=== PATIENT | female | born 1955 | race Caucasian/White ===

== ENCOUNTER 2022-05-22 12:38 | Emergency (ER) | payer MEDICARE, MEDICAID ==
[~2022-05-22] VITALS: Ht 167.6 cm; Wt 100.0 kg
[2022-05-22 12:43] VITALS: BP 179/149
[2022-05-22] MEDS ORDERED: indomethacin 25mg capsule PO ONE (13:40)
[2022-05-22] MEDS ORDERED: acetaminophen 325mg tablet PO ONE (13:40)
[2022-05-22] MEDS ORDERED: MELO-100 PO (13:44)
[2022-05-22] MEDS ORDERED: ACET-1025 PO (13:44)
== END 2022-05-22 14:08 | disposition home or self-care (01) ==
LOC: ER 12:38
DX: M79.10 Myalgia, unspecified site (principal)
CPT/HCPCS: 99283

== ENCOUNTER 2022-06-06 09:52 | Emergency (ER) | payer MEDICARE, MEDICAID ==
[~2022-06-06] VITALS: Ht 170.2 cm; Wt 100.0 kg
[~2022-06-06 09:52] MED LIST: MELO-100 PO
[2022-06-06 09:57] VITALS: BP 179/75
[2022-06-06] MEDS: HYDROcodone/acetaminophen 10/325mg tab PO ONE (12:37)
[2022-06-06] MEDS: ketorolac trometh inj. 60 MG/2 ML VIAL IM ONE (12:37)
[2022-06-06] MEDS ORDERED: NAPR-56 PO (14:06)
== END 2022-06-06 09:55 | disposition home or self-care (01) ==
LOC: ER 09:53
DX: M25.542 Pain in joints of left hand (principal); M25.541 Pain in joints of right hand; M54.9 Dorsalgia, unspecified; G89.29 Other chronic pain; F32.A Depression, unspecified; F17.200 Nicotine dependence, unspecified, uncomplicated; Z60.2 Problems related to living alone; Z79.899 Other long term (current) drug therapy
CPT/HCPCS: 73120; 96372; 99284; J1885

== ENCOUNTER 2024-06-11 10:07 | Emergency (ER) | payer BC, MEDICAID ==
[~2024-06-11] VITALS: Ht 167.6 cm; Wt 62.6 kg
[2024-06-11 10:33] LABS: BILIRUBIN,URINE SMALL (Neg); CLARITY,URINE CLOUDY (Clear); COLOR,URINE YELLOW (Yellow); GLUCOSE, URINE NEGATIVE (Neg); KETONES,URINE NEGATIVE (Neg); LEUKOCYTE ESTERASE ,URINE TRACE (Neg); NITRITES, URINE POSITIVE (Neg); OCCULT BLOOD,URINE NEGATIVE (Neg); PROTEIN,URINE TRACE mg/dl (Neg); UROBILINOGEN,URINE 0.2 E.U/dL (0.2-1.0)
[2024-06-11 10:37] LABS: UA COLLECTION TYPE CLN CATCH MIDSTREAM
[2024-06-11 10:39] LABS: BACTERIA,URINE 4+ /HPF (Neg); MUCUS STRANDS FEW /LPF (Neg)
[2024-06-11 10:40] LABS: RBC,URINE 0-2 /HPF (0-2); SQUAMOUS EPITHELIAL CELL,UR MODERATE /LPF (FEW)
[2024-06-11] MEDS: normal saline 1000ML IV soln IVB ONE (10:57)
[2024-06-11] MEDS: ondansetron/PF 4mg/2ml inj IV ONE (10:58)
[2024-06-11 11:13] LABS: BASOPHILS % (AUTO) 0.4 % (0-1); EOSINOPHILS % (AUTO) 1.3 % (0-6); HEMOGLOBIN 10.2 g/dl (12.0-16.0); LYMPHOCYTES # (AUTO) 0.4 X10'3 (1.1-4.8); LYMPHOCYTES % (AUTO) 13.5 % (21-51); MEAN CORPUSCULAR HEMOGLOBIN 26.6 PG (27.0-31.0); MEAN CORPUSCULAR HGB CONC 31.8 g/dL (33.0-36.5); MEAN CORPUSCULAR VOLUME 83.8 FL (78-98); MEAN PLATELET VOLUME 8.9 FL (7.4-10.4); MONOCYTES # (AUTO) 0.1 X10'3 (0-0.9); MONOCYTES % (AUTO) 4.8 % (2-12); NEUTROPHILS # (AUTO) 2.5 X10'3 (1.8-7.7); PLATELET COUNT 249 X10'3 (140-440); RED BLOOD COUNT 3.82 X10'6 (4.20-5.60); RED CELL DISTRIBUTION WIDTH 19.2 % (11.5-14.5); WHITE BLOOD COUNT 3.1 X10'3 (4.5-11.0)
[2024-06-11] MEDS: ketorolac trometh 15mg/ml vial 15 MG/ML ML IV ONE (11:22)
[2024-06-11 11:29] LABS: ALANINE AMINOTRANSFERASE 8 U/L (12-78); ALBUMIN 2.6 G/DL (3.4-5.0); ALBUMIN/GLOBULIN RATIO 0.5 (1.1-1.5); ALKALINE PHOSPHATASE 60 IU/L (46-116); ANION GAP 8 (8-16); ASPARTATE AMINO TRANSFERASE 12 U/L (10-37); BILIRUBIN,TOTAL 0.5 MG/DL (0.1-1.0); BLOOD UREA NITROGEN 14 MG/DL (7-18); BUN/CREATININE RATIO 18.4 (10.0-20.0); CHLORIDE 105 MMOL/L (99-107); CREATININE 0.76 MG/DL (0.40-0.90); GLUCOSE 89 MG/DL (70-104); LIPASE 26 U/L (16-77); POTASSIUM 4.2 MMOL/L (3.5-5.1); SODIUM 138 MMOL/L (135-145); TOTAL CARBON DIOXIDE 25.4 MMOL/L (24-32); TOTAL PROTEIN 7.5 G/DL (6.4-8.2); eCRCL 67 ML/MIN; eGFR 76 ML/MIN
[2024-06-11] MEDS: CefTRIAXone/D5W-Rocephin 1gm 50 ML IV ONE (11:50)
[2024-06-11 11:56] LABS: ANISOCYTOSIS 2+; ELLIPTOCYTES 1+; HYPOCHROMASIA 1+; PLATELET ESTIMATE NORMAL; STOMATOCYTES 1+
[2024-06-11] MEDS ORDERED: ONDA-245 PO (13:35)
[2024-06-11] MEDS ORDERED: SULF1TAB49 PO (13:35)
[2024-06-11] MEDS ORDERED: IBUP-1985 PO (13:36)
[2024-06-11 14:01] VITALS: BP 152/88; PULSE 77; RESP 15; TEMP 98.1; O2SAT 97
== END 2024-06-11 14:05 | disposition home or self-care (01) ==
LOC: ER 10:07
DX: N10 Acute pyelonephritis (principal); L03.116 Cellulitis of left lower limb; R10.84 Generalized abdominal pain; Z79.1 Long term (current) use of non-steroidal anti-inflammatories (NSAID); Z79.899 Other long term (current) drug therapy; Z60.2 Problems related to living alone; F32.A Depression, unspecified
CPT/HCPCS: 36415; 74176; 80053; 81001; 83690; 85008; 85025; 87077; 87088; 87186; 96361; 96365; 96366; 96375; 99285; J0696; J1885; J2405; J7030